=== PATIENT | female | born 1945 | race Caucasian/White ===

== ENCOUNTER 2020-10-07 19:12 | Emergency (ER) | payer MEDICARE, OTHER ==
[2020-10-07] MEDS ORDERED: CEPHALEXIN500 M1 PO ×2 (21:07→21:08)
== END 2020-10-07 20:30 | disposition home or self-care (01) ==
LOC: FER 19:12
DX: L03.114 Cellulitis of left upper limb (principal); I10 Essential (primary) hypertension; Z88.2 Allergy status to sulfonamides
CPT/HCPCS: 99283

== ENCOUNTER 2021-12-06 17:36 | Emergency (ER) | payer MEDICARE, OTHER ==
[~2021-12-06 17:36] MED LIST: CEPHALEXIN500 M1 PO
[2021-12-06 19:30] LABS: CORONAVIRUS 2019 SARS-COV-2 NEGATIVE (NEGATIVE); INFLUENZA A NAA NEGATIVE (NEGATIVE)
[2021-12-06 20:22] LABS: BASOPHIL 0.5 % (0-2); EOSINOPHIL 0.5 % (0-7); HCT 37.8 % (37.0-47.0); HGB 12.9 g/dl (12.5-16.0); LYMPHOCYTE 39.2 % (15-48); MCH 29.1 pg (25.0-31.0); MCHC 34.1 g/dL (32.0-36.0); MCV 85.3 fL (78.0-100.0); MONOCYTE 8.1 % (0-12); MPV 10.3 fL (6.0-9.5); NEUTROPHIL 51.5 % (41-80); NRBC 0; PLT 169 K/uL (150-400); RBC 4.43 M/uL (4.20-5.40); RDW 12.2 % (11.5-14.0)
[2021-12-06 20:33] LABS: PROTHROMBIN TIME 12.9 SECONDS (11.9-13.9); PTT 25.9 SECONDS (24.9-34.6)
[2021-12-06 20:45] LABS: ALBUMIN 4.1 g/dL (3.4-5.0); BILIRUBIN - TOTAL 1.1 mg/dL (0.2-1.0); BUN/CREAT RATIO (CALC) 16.2 RATIO; CREATININE 0.74 mg/dL (0.51-0.95); GLOBULIN (CALCULATION) 3.2 g/dL; TOTAL PROTEIN 7.3 g/dL (6.4-8.2)
[2021-12-06 21:40] LABS: BILIRUBIN NEGATIVE (NEGATIVE); BLOOD TRACE-INTACT Ery/uL (NEGATIVE); CLARITY CLEAR (CLEAR); COLOR YELLOW (YELLOW); GLUCOSE (U) NORMAL (NORMAL); LEUKOCYTES 2+ Leu/uL (NEGATIVE); NITRITE NEGATIVE (NEGATIVE); PROTEIN NEGATIVE (NEGATIVE); SPECIFIC GRAVITY <=1.005 (1.001-1.030); pH 6.5 (5.0-9.0)
[2021-12-06 21:59] LABS: SQUAMOUS EPITHELIAL CELLS RARE; URINARY RBC RARE
== END 2021-12-06 22:30 | disposition other institution (70) ==
LOC: FER 17:36
PROVIDERS: Emergency Medicine; Internal Medicine
DX: I63.532 Cerebral infarction due to unspecified occlusion or stenosis of left posterior cerebral artery (principal); H53.461 Homonymous bilateral field defects, right side; I10 Essential (primary) hypertension; R29.702 NIHSS score 2; Z88.2 Allergy status to sulfonamides; Z20.822 Contact with and (suspected) exposure to COVID-19
CPT/HCPCS: 36415; 70450; 80053; 81001; 85025; 85610; 85730; Q9967; U0002